=== PATIENT | male | born 1970 | race Caucasian/White ===

== ENCOUNTER 2017-04-09 23:50 | Emergency (ER) | payer OTHER ==
[~2017-04-09 23:50] MED LIST: ASPIRIN EC325 MG PO; CEFTRIAXONE IV; HYDROXYZINE PAM25 MG PO; OXYCODONE/ACETA1 TA1 PO
--- NOTE | 2017-04-10 01:55 | ED ORDER SUMMARY ---
..... Patient: CHINA FRASER OrderSheet [facility] VisitID: [id number] [address] [place] [address] 46y, M Registration Date/Time: 04/09/2017 ORDER SHEET Weight: 104.3 kg (stated) Allergies: No Known Drug Allergy GENERAL ORDERS: Chest 2V Urgent (00:59 04/10/2017 Quinn CHAKRABORTY) (Ack 1:01 [employer] ER Jeep Driver) (1:30 Chandrika) Rapid Influenza Screen (Nasal Pharyngeal) (swab) Urgent (00:59 04/10/2017 Quinn CHAKRABORTY) (Ack 1:01 [employer] ER Jeep Driver) (1:02 Rosalina R.N.) MEDICATION ORDERS: IV FLUIDS: ORDER SHEET NOTES: [Electronically signed by Berny Ayon R.N. (02:09 04/10/2017)] [Electronically signed by Carlos Manuel Branham MD (20:45 04/14/2017)] [Electronically locked/signed by Berny Ayon R.N. (02:09 04/10/2017)]
--- NOTE | 2017-04-10 01:55 | ED NURSING NOTES ---
Clinical Report - [facility] [place] [place] [address] 04/09/2017 23:51 Patient: CHINA FRASER TRIAGE Triage time 00:Apr 10 2017. Acuity: LEVEL 3. Chief Complaint: "FLU", FEVER, COUGH, SORE THROAT and BODY ACHES. Alert. No acute distress. --00:34 Kalia Ha R.N. 00:26 04/10/17. BP: 133/72. HR: 91. RR: 18. O2 saturation: 95% on room air. Temp: 97.6 F. Pain level now: 07/02. --00:34 Kalia Ha R.N. Weight: 104.3 kg stated. Height/Length: 73 inches Per Patient. BMI: 30.3. --00:26 Kalia Ha R.N. Medications Zicam Cold Remedy Oral. --00:30 Kalia Ha R.N. Airborne Oral. --00:30 Kalia Ha R.N. Allergies No Known Drug Allergy. --00:30 Kalia Ha R.N. History Arrived by private vehicle. Historian: patient and family. Accompanied by family. Onset. (1 week ago). He has had chills, fatigue, abdominal pain and diarrhea. 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 PAST MEDICAL HX: Pneumonia. No history of asthma or diabetes mellitus. Immunizations: up-to-date. SOCIAL HX: Heavy tobacco smoker. History of drug use: marijuana. No alcohol use. No recent travel. No infectious disease exposure. No known contact with a sick individual. ABUSE ASSESSMENT: Abuse assessment: The patient was asked "Do you feel safe in your home?". No report of abuse. SELF HARM ASSESSMENT: A self harm assessment was performed. The patient answered "no" to the question "Do you have thoughts of harming or killing yourself?" and "Have you recently had thoughts about harming or killing others?". FALL RISK ASSESSMENT: Fall risk assessment completed. No fall risk identified. NUTRITIONAL RISK ASSESSMENT: The nutritional risk assessment revealed no deficiencies. FUNCTIONAL ASSESSMENT: Functional assessment: no impairments noted. LEARNING NEEDS ASSESSMENT: The learning needs assessment revealed no barriers. SKIN INTEGRITY ASSESSMENT: Skin integrity risk assessment completed. No skin integrity risk identified. --00:34 Kalia Ha R.N. PROBLEMS: Dental Caries. Gastroenteritis. Weakness, sob . Contusion. Abscess. Dental Pain. Viral Disease. Wound Infection. Suture Removal. Wound Check. Laceration. Acute Pain. Epididymitis. --00:30 Kalia Ha R.N. ADDITIONAL SURGERIES: Finger surgery . Growth removed from testicle. Hernia Repair. Right arm ?. --00:30 Kalia Ha R.N. Interventions ID band on patient. To room. --00:34 Kalia Ha R.N. PHYSICAL ASSESSMENT Ambulatory to room. GENERAL / NEURO / PSYCH: Alert. Oriented X 4. Acute distress is noted. HEENT: Pupils equal, round and reactive to light. Mucous membranes are pink. RESPIRATORY: Respirations not labored. Decreased breath sounds. CVS: Pulses within normal limits. GI / : Abdomen soft and nontender. SKIN: Skin intact. Skin is warm and dry. --00:35 Kalia Ha R.N. NURSING PROGRESS NOTES The plan of care for this patient has been created. Patient gowned. Head of bed elevated. Reassurance given. Two patient identifiers checked. Call light placed in reach. Bed placed in lowest position. Patient ready for evaluation- chart flagged and ED physician notified. --00:35 Kalia Ha R.N. Patient ID band checked for patient name and birthdate: patient confirmed. Instructions provided to collect clean catch urine and patient verbalized understanding. Clean catch urine collected with return of ralf-colored cloudy urine; sample sent to lab. --00:40 Kalia Ha R.N. ( MD in to assess Pt.). --01:03 Kalia Ha R.N. Patient ID band checked for patient name and birthdate: patient confirmed. Flu swab obtained by RN via nasal swab. Labeled in the presence of the patient and sent to lab. --01:03 Kalia Ha R.N. 01:33 04/10/17. BP: 131/82. --01:33 Kalia Ha R.N. ( Pt has gone for CXR already, resting in bed, helped him reposition. S/O at bedside.). --01:34 Kalia Ha R.N. ( Report received from Kalia Ha RN). --01:35 Berny Ayon R.N. DISPOSITION / DISCHARGE Departure time: 02:07. Condition at departure: stable. No learning barriers present. Discharge instructions provided and reviewed with cigarette packer. Reviewed warnings. Reviewed medication(s) side effects, precautions, dosing and course information. Prescription(s) given to the patient. Treatments reviewed. Reviewed referrals for followup. Patient and cigarette packer verbalized understanding. Written instructions provided in [place] Citizen. The patient was discharged home and accompanied by cigarette packer. He left the Emergency Department ambulatory and via private vehicle. Repair Specialist driving. --02:08 Berny Ayon R.N. 02:07 04/10/17. BP: 131/82. HR: 99. RR: 24 (regular and unlabored). O2 saturation: 97% on room air. Tripathi-Castro pain scale: 2/10. --02:08 Berny Ayon R.N. Locked/Released at 04/10/2017 2:09 by Berny Ayon R.N.
--- NOTE | 2017-04-10 01:55 | ED CLINICAL REPORT ---
Clinical Report - Physicians/Mid Levels [facility] [address] [place] [address] 04/09/2017 23:51 [id number] Time Seen: 00:57 Apr 10 2017. Arrived- By private vehicle. Historian- patient. CPT: ER phys charges level 4 (#[id number]). HISTORY OF PRESENT ILLNESS Chief Complaint: COUGH, SORE THROAT, MUSCLE ACHES and "FLU". 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 The illness is described as moderate. The patient has had a cough, a sore throat, fever and muscle aches. He has had moderate amounts of thick, yellow, green sputum. There has been a change from baseline. No difficulty breathing, chest discomfort or pain or nasal congestion. Additional history - No known contact with a sick individual. Similar symptoms previously: Recent medical care: Not recently seen/assessed. REVIEW OF SYSTEMS No nausea, vomiting, diarrhea, abdominal pain or pedal edema. No calf pain, difficulty with urination, skin rash, enlarged lymph nodes or joint pain. All systems otherwise negative, except as recorded above. PAST HISTORY Pneumonia. Dental Caries. Gastroenteritis. Weakness, sob . Contusion. Abscess. Dental Pain. Viral Disease. Wound Infection. Suture Removal. Wound Check. Laceration. Acute Pain. Epididymitis. --00:30 Kalia Ha R.N. ADDITIONAL SURGERIES: Finger surgery . Growth removed from testicle. Hernia Repair. Right arm ?. Medications: Airborne Oral. Zicam Cold Remedy Oral. Allergies: No Known Drug Allergy. SOCIAL HISTORY Heavy tobacco smoker (cigarette)- less than 1 pack per day. Occasional alcohol use. No drug use. ADDITIONAL NOTES The nursing notes have been reviewed. PHYSICAL EXAM Vital Signs: 04/10/2017 00:26 BP: 133/72. HR: 91. RR: 18. O2 saturation: 95%. Temp: 97.6 F. Pain level now: 8/10. Appearance: Alert. No acute distress. Eyes: Eyes normal inspection. ENT: Nose normal. Pharynx normal. Uvula midline. Neck: Normal inspection. CVS: Normal heart rate and rhythm. Heart sounds normal. Pulses normal. Respiratory: No respiratory distress. Mild bilateral wheezes in the bases. Moderate rales in the right lung base posteriorly and mid-lung posteriorly. Abdomen: Soft. Skin: Normal skin color. No rash. Neuro: Oriented X 3. LABS, X-RAYS, AND EKG Chest X-ray: Normal Chest X-Ray. Laboratory Tests: Rapid Influenza Screen: (EMELYN: 04/10/2017 00:37) ( MsgRcvd 04/10/2017 01:17) Final results SPECIMEN DESCRIPTION: SWAB Test Result Flag Units (Reference) RAPID INFLUENZA SCREEN CALLED TO: N/A -- DATE: 04/10/17 INFLUENZA A: NEGATIVE SCREEN FOR INFLUENZA A INFLUENZA B: NEGATIVE SCREEN FOR INFLUENZA B . PROGRESS AND PROCEDURES Patient/family counseled. Disposition: Discharged. Condition: stable. CLINICAL IMPRESSION Acute bacterial mucopurulent bronchitis associated with bronchospasm. Bronchitis vs early pneumonia. INSTRUCTIONS No strenuous activity. Rest. Drink plenty of fluids. Warnings: Further evaluation is necessary. GENERAL WARNINGS: Return or contact your physician immediately if your condition worsens or changes unexpectedly, if not improving as expected, or if other problems arise. Your Current Medications: CONTINUE TAKING THE FOLLOWING MEDICATIONS: Airborne Oral. Zicam Cold Remedy Oral. Prescription Medications: Albuterol HFA oral inhaler: inhale 2 puffs via spacer every 4 hours as needed for difficulty breathing or shortness of breath, until symptoms improve. Dispense one (1) unit. No refill. Zithromax 250 mg tablets: take 2 orally today, followed by 1 daily for the next 4 days. No refills. Substitution is permissible. Hydrocodone / APAP Liquid 7.5mg/325mg/15 mL: take fifteen (15) mL orally every 4 hours as needed for pain. Dispense two hundred (200) mL. No refill. (or cough) Follow-up: Follow up with your doctor in one week. Call for an appointment. Understanding of the discharge instructions verbalized by patient and family. (Electronically signed by Carlos Manuel Branham MD 04/14/2017 20:45)
--- NOTE | 2017-04-10 01:55 | ED ORDER SUMMARY ---
..... 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 (02:09 04/10/2017)] [Electronically signed by Carlos Manuel Branham MD (20:45 04/14/2017)] [Electronically locked/signed by Berny Ayon R.N. (02:09 04/10/2017)]
--- NOTE | 2017-04-10 01:55 | ED CLINICAL REPORT ---
Clinical Report - Physicians/Mid Levels [facility] [address] [place] [address] 04/09/2017 23:51 [id number] Time Seen: 00:57 Apr 10 2017. Arrived- By private vehicle. Historian- patient. CPT: ER phys charges level 4 (#[id number]). HISTORY OF PRESENT ILLNESS Chief Complaint: COUGH, SORE THROAT, MUSCLE ACHES and "FLU". 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 The illness is described as moderate. The patient has had a cough, a sore throat, fever and muscle aches. He has had moderate amounts of thick, yellow, green sputum. There has been a change from baseline. No difficulty breathing, chest discomfort or pain or nasal congestion. Additional history - No known contact with a sick individual. Similar symptoms previously: Recent medical care: Not recently seen/assessed. REVIEW OF SYSTEMS No nausea, vomiting, diarrhea, abdominal pain or pedal edema. No calf pain, difficulty with urination, skin rash, enlarged lymph nodes or joint pain. All systems otherwise negative, except as recorded above. PAST HISTORY Pneumonia. Dental Caries. Gastroenteritis. Weakness, sob . Contusion. Abscess. Dental Pain. Viral Disease. Wound Infection. Suture Removal. Wound Check. Laceration. Acute Pain. Epididymitis. --00:30 Kalia Ha R.N. ADDITIONAL SURGERIES: Finger surgery . Growth removed from testicle. Hernia Repair. Right arm ?. Medications: Airborne Oral. Zicam Cold Remedy Oral. Allergies: No Known Drug Allergy. SOCIAL HISTORY Heavy tobacco smoker (cigarette)- less than 1 pack per day. Occasional alcohol use. No drug use. ADDITIONAL NOTES The nursing notes have been reviewed. PHYSICAL EXAM Vital Signs: 04/10/2017 00:26 BP: 133/72. HR: 91. RR: 18. O2 saturation: 95%. Temp: 97.6 F. Pain level now: 8/10. Appearance: Alert. No acute distress. Eyes: Eyes normal inspection. ENT: Nose normal. Pharynx normal. Uvula midline. Neck: Normal inspection. CVS: Normal heart rate and rhythm. Heart sounds normal. Pulses normal. Respiratory: No respiratory distress. Mild bilateral wheezes in the bases. Moderate rales in the right lung base posteriorly and mid-lung posteriorly. Abdomen: Soft. Skin: Normal skin color. No rash. Neuro: Oriented X 3. LABS, X-RAYS, AND EKG Chest X-ray: Normal Chest X-Ray. Laboratory Tests: Rapid Influenza Screen: (EMELYN: 04/10/2017 00:37) ( MsgRcvd 04/10/2017 01:17) Final results SPECIMEN DESCRIPTION: SWAB Test Result Flag Units (Reference) RAPID INFLUENZA SCREEN CALLED TO: N/A -- DATE: 04/10/17 INFLUENZA A: NEGATIVE SCREEN FOR INFLUENZA A INFLUENZA B: NEGATIVE SCREEN FOR INFLUENZA B . PROGRESS AND PROCEDURES Patient/family counseled. Disposition: Discharged. Condition: stable. CLINICAL IMPRESSION Acute bacterial mucopurulent bronchitis associated with bronchospasm. Bronchitis vs early pneumonia. INSTRUCTIONS No strenuous activity. Rest. Drink plenty of fluids. Warnings: Further evaluation is necessary. GENERAL WARNINGS: Return or contact your physician immediately if your condition worsens or changes unexpectedly, if not improving as expected, or if other problems arise. Your Current Medications: CONTINUE TAKING THE FOLLOWING MEDICATIONS: Airborne Oral. Zicam Cold Remedy Oral. Prescription Medications: Albuterol HFA oral inhaler: inhale 2 puffs via spacer every 4 hours as needed for difficulty breathing or shortness of breath, until symptoms improve. Dispense one (1) unit. No refill. Zithromax 250 mg tablets: take 2 orally today, followed by 1 daily for the next 4 days. No refills. Substitution is permissible. Hydrocodone / APAP Liquid 7.5mg/325mg/15 mL: take fifteen (15) mL orally every 4 hours as needed for pain. Dispense two hundred (200) mL. No refill. (or cough) Follow-up: Follow up with your doctor in one week. Call for an appointment. Understanding of the discharge instructions verbalized by patient and family. (Electronically signed by Carlos Manuel Branham MD 04/14/2017 20:45)
--- NOTE | 2017-04-10 01:55 | ED NURSING NOTES ---
Clinical Report - Nurses [facility] [place] [address] 04/09/2017 23:51 Patient: CHINA FRASER TRIAGE Triage time 00:Apr 10 2017. Acuity: LEVEL 3. Chief Complaint: "FLU", FEVER, COUGH, SORE THROAT and BODY ACHES. Alert. No acute distress. --00:34 Kalia Ha R.N. 00:26 04/10/17. BP: 133/72. HR: 91. RR: 18. O2 saturation: 95% on room air. Temp: 97.6 F. Pain level now: 07/02. --00:34 Kalia Ha R.N. Weight: 104.3 kg stated. Height/Length: 73 inches Per Patient. BMI: 30.3. --00:26 Kalia Ha R.N. Medications Zicam Cold Remedy Oral. --00:30 Kalia Ha R.N. Airborne Oral. --00:30 Kalia Ha R.N. Allergies No Known Drug Allergy. --00:30 Kalia Ha R.N. History Arrived by private vehicle. Historian: patient and family. Accompanied by family. Onset. (1 week ago). He has had chills, fatigue, abdominal pain and diarrhea. 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 PAST MEDICAL HX: Pneumonia. No history of asthma or diabetes mellitus. Immunizations: up-to-date. SOCIAL HX: Heavy tobacco smoker. History of drug use: marijuana. No alcohol use. No recent travel. No infectious disease exposure. No known contact with a sick individual. ABUSE ASSESSMENT: Abuse assessment: The patient was asked "Do you feel safe in your home?". No report of abuse. SELF HARM ASSESSMENT: A self harm assessment was performed. The patient answered "no" to the question "Do you have thoughts of harming or killing yourself?" and "Have you recently had thoughts about harming or killing others?". FALL RISK ASSESSMENT: Fall risk assessment completed. No fall risk identified. NUTRITIONAL RISK ASSESSMENT: The nutritional risk assessment revealed no deficiencies. FUNCTIONAL ASSESSMENT: Functional assessment: no impairments noted. LEARNING NEEDS ASSESSMENT: The learning needs assessment revealed no barriers. SKIN INTEGRITY ASSESSMENT: Skin integrity risk assessment completed. No skin integrity risk identified. --00:34 Kalia Ha R.N. PROBLEMS: Dental Caries. Gastroenteritis. Weakness, sob . Contusion. Abscess. Dental Pain. Viral Disease. Wound Infection. Suture Removal. Wound Check. Laceration. Acute Pain. Epididymitis. --00:30 Kalia Ha R.N. ADDITIONAL SURGERIES: Finger surgery . Growth removed from testicle. Hernia Repair. Right arm ?. --00:30 Kalia Ha R.N. Interventions ID band on patient. To room. --00:34 Kalia Ha R.N. PHYSICAL ASSESSMENT Ambulatory to room. GENERAL / NEURO / PSYCH: Alert. Oriented X 4. Acute distress is noted. HEENT: Pupils equal, round and reactive to light. Mucous membranes are pink. RESPIRATORY: Respirations not labored. Decreased breath sounds. CVS: Pulses within normal limits. GI / : Abdomen soft and nontender. SKIN: Skin intact. Skin is warm and dry. --00:35 Kalia Ha R.N. NURSING PROGRESS NOTES The plan of care for this patient has been created. Patient gowned. Head of bed elevated. Reassurance given. Two patient identifiers checked. Call light placed in reach. Bed placed in lowest position. Patient ready for evaluation- chart flagged and ED physician notified. --00:35 Kalia Ha R.N. Patient ID band checked for patient name and birthdate: patient confirmed. Instructions provided to collect clean catch urine and patient verbalized understanding. Clean catch urine collected with return of ralf-colored cloudy urine; sample sent to lab. --00:40 Kalia Ha R.N. ( MD in to assess Pt.). --01:03 Kalia Ha R.N. Patient ID band checked for patient name and birthdate: patient confirmed. Flu swab obtained by RN via nasal swab. Labeled in the presence of the patient and sent to lab. --01:03 Kalia Ha R.N. 01:33 04/10/17. BP: 131/82. --01:33 Kalia Ha R.N. ( Pt has gone for CXR already, resting in bed, helped him reposition. S/O at bedside.). --01:34 Kalia Ha R.N. ( Report received from Kalia Ha RN). --01:35 Berny Ayon R.N. DISPOSITION / DISCHARGE Departure time: 02:07. Condition at departure: stable. No learning barriers present. Discharge instructions provided and reviewed with classer. Reviewed warnings. Reviewed medication(s) side effects, precautions, dosing and course information. Prescription(s) given to the patient. Treatments reviewed. Reviewed referrals for followup. Patient and classer verbalized understanding. Written instructions provided in [place]. The patient was discharged home and accompanied by classer. He left the Emergency Department ambulatory and via private vehicle. Manager Intensive Care driving. --02:08 Berny Ayon R.N. 02:07 04/10/17. BP: 131/82. HR: 99. RR: 24 (regular and unlabored). O2 saturation: 97% on room air. Tripathi-Castro pain scale: 2/10. --02:08 Berny Ayon R.N. Locked/Released at 04/10/2017 2:09 by Berny Ayon R.N.
--- NOTE | 2017-04-10 02:27 | DIAGNOSTIC IMAGING REPORT ---
PROCEDURE: XR CHEST 2 VIEW INDICATION: FEVER TECHNIQUE: PA and lateral views. COMPARISON: Compared to chest x-ray on 08/28/2015. FINDINGS: Lungs are clear. Heart and mediastinum are normal. Mild degenerative changes of the thoracic spine. IMPRESSION: 1. Negative chest.
--- NOTE | 2017-04-14 20:45 | ED MAR SUMMARY ---
..... Medication Administration Record [facility] [address], [place] [id number] Patient: CHINA FRASER Visit ID: [id number] 46y, M Weight: 104.3 kg Height/Length: 73 in BMI: 30.3 ALLERGIES: No Known Drug Allergy
--- NOTE | 2017-04-14 20:45 | ED MAR SUMMARY ---
..... Medication Administration Record [facility] [address] [place], [place] [id number] Patient: CHINA FRASER Visit ID: [id number] 46y, M Weight: 104.3 kg Height/Length: 73 in BMI: 30.3 ALLERGIES: No Known Drug Allergy
--- NOTE | 2017-04-14 20:45 | ED DISCHARGE INSTRUCTIONS ---
Patient: [place] FRASER General Instructions [facility] VisitID: [id number] [address] [place] [address] 46y, M Registration Date/Time: 04/09/2017 Bronchitis vs early pneumonia. INSTRUCTIONS No strenuous activity. Rest. Drink plenty of fluids. Warnings: Further evaluation is necessary. GENERAL WARNINGS: Return or contact your physician immediately if your condition worsens or changes unexpectedly, if not improving as expected, or if other problems arise. Your Current Medications: CONTINUE TAKING THE FOLLOWING MEDICATIONS: Airborne Oral. Zicam Cold Remedy Oral. Prescription Medications: Albuterol HFA oral inhaler: inhale 2 puffs via spacer every 4 hours as needed for difficulty breathing or shortness of breath, until symptoms improve. Dispense one (1) unit. No refill. Zithromax 250 mg tablets: take 2 orally today, followed by 1 daily for the next 4 days. No refills. Substitution is permissible. Hydrocodone / APAP Liquid 7.5mg/325mg/15 mL: take fifteen (15) mL orally every 4 hours as needed for pain. Dispense two hundred (200) mL. No refill. (or cough) Follow-up: Follow up with your doctor in one week. Call for an appointment. Understanding of the discharge instructions verbalized by patient and family. ADDITIONAL INFORMATION Bronchitis With Wheezing (Viral Or Bacterial: Adult) Bronchitis is an infection of the air passages. It often occurs during the common cold and is usually caused by a virus. Symptoms include cough with mucus (phlegm) and low-grade fever. If there is a lot of inflammation, air flow is restricted. The air passages may also go into spasm, especially if you are an asthmatic. This causes wheezing and difficulty breathing even in persons who do not have asthma. Bronchitis usually lasts 7-14 days. The wheezing should improve with treatment during the first week. An inhaler is often prescribed to relax the air passages and stop wheezing. Antibiotics will be prescribed if your doctor thinks there is also a secondary bacterial infection. Home Care: If symptoms are severe, rest at home for the first 2-3 days. When resuming activity, don't let yourself become overly tired. Do not smoke and avoid exposure to the smoke of others. You may use acetaminophen (Tylenol) or ibuprofen (Motrin, Advil) to control fever, unless another medicine was prescribed. [NOTE: If you have chronic liver or kidney disease or ever had a stomach ulcer or GI bleeding, talk with your doctor before using these medicines.] (Aspirin should never be used in anyone under 18 years of age who is ill with a fever. It may cause severe liver damage.) Your appetite may be poor so a light diet is fine. Avoid dehydration by drinking 6-8 glasses of fluids per day (water, soft, drinks, juices, tea, soup, etc.). Extra fluids will help loosen secretions in the lungs. [id number] cough medicines that containdextromethorphan(such as Robitussin DM) and decongestants (Actifed or Sudafed) may help relieve cough and congestion. [NOTE: Do not use decongestants if you have high blood pressure.] If you were given an inhaler, use it exactly as directed. If you need to use it more often than prescribed, your condition may be worsening. Contact your doctor or this facility. If prescribed, finish all antibiotic medicine, even if you are feeling better after only a few days. Follow Up With Your Doctor Or As Directed If You Are Not Starting To Feel Better After Three Days. [NOTE: If you are age 65 or older, or if you have chronic asthma or COPD, we recommend a pneumococcal vaccination every five years and a yearly influenza vaccination (flu shot) every . Ask your doctor about this. If you had an x-ray or EKG (electrocardiogram), it will be reviewed by a specialist. You will be notified of any new findings that may affect your care.] Get Prompt Medical Attention If Any Of The Following Occur: Increased wheezing, shortness of breath or pain with breathing Fever of 100.4F (38C) oral or higher, not better with fever medication Coughing up blood or increasing amounts of colored sputum Weakness, drowsiness, headache, facial pain, ear pain or a stiff neck Lower leg swelling, tenderness, redness or pain Albuterol Sulfate Pressurized inhalation, suspension What is this medicine? ALBUTEROL (al BYOO ter ole) is a bronchodilator. It helps open up the airways in your lungs to make it easier to breathe. This medicine is used to treat and to prevent bronchospasm. How should I use this medicine? This medicine is for inhalation through the mouth. Follow the directions on your prescription label. Take your medicine at regular intervals. Do not use more often than directed. Make sure that you are using your inhaler correctly. Ask you doctor or health care provider if you have any questions. Talk to your chief engineer regarding the use of this medicine in children. Special care may be needed. What side effects may I notice from receiving this medicine? Side effects that you should report to your doctor or health managed care specialist as soon as possible: allergic reactions like skin rash, itching or hives, swelling of the face, lips, or tongue breathing problems chest pain feeling faint or lightheaded, falls high blood pressure irregular heartbeat fever muscle cramps or weakness pain, tingling, numbness in the hands or feet vomiting Side effects that usually do not require medical attention (report to your doctor or health managed care specialist if they continue or are bothersome): cough difficulty sleeping headache nervousness or trembling stomach upset stuffy or runny nose throat irritation unusual taste What may interact with this medicine? anti-infectives like chloroquine and pentamidine caffeine cisapride diuretics medicines for colds medicines for depression or for emotional or psychotic conditions medicines for weight loss including some herbal products methadone some antibiotics like clarithromycin, erythromycin, levofloxacin, and linezolid some heart medicines steroid hormones like dexamethasone, cortisone, hydrocortisone theophylline thyroid hormones What if I miss a dose? If you miss a dose, use it as soon as you can. If it is almost time for your next dose, use only that dose. Do not use double or extra doses. Where should I keep my medicine? Keep out of the reach of children. Store at room temperature between 15 and 30 degrees C (59 and 86 degrees F). The contents are under pressure and may burst when exposed to heat or flame. Do not freeze. This medicine does not work as well if it is too cold. Throw away any unused medicine after the expiration date. Inhalers need to be thrown away after the labeled number of puffs have been used or by the expiration date; whichever comes first. Ventolin HFA should be thrown away 12 months after removing from foil pouch. Check the instructions that come with your medicine. What should I tell my health care provider before I take this medicine? They need to know if you have any of the following conditions: diabetes heart disease or irregular heartbeat high blood pressure pheochromocytoma seizures thyroid disease an unusual or allergic reaction to albuterol, levalbuterol, sulfites, other medicines, foods, dyes, or preservatives or trying to get breast-feeding What should I watch for while using this medicine? Tell your doctor or health managed care specialist if your symptoms do not improve. Do not use extra albuterol. If your asthma or bronchitis gets worse while you are using this medicine, call your doctor right away. If your mouth gets dry try chewing sugarless gum or sucking hard candy. Drink water as directed. Hydrocodone Bitartrate, Acetaminophen Oral solution What is this medicine? ACETAMINOPHEN; HYDROCODONE (a set a ALYSON rock fen; bravo droe KOE done) is a pain reliever. It is used to treat mild to moderate pain. How should I use this medicine? Take this medicine by mouth. Use a specially marked spoon or dropper to measure your dose. Ask your pharmacist if you do not have a dropper or measuring spoon. Do not use a household spoon. Follow the directions on the prescription label. If the medicine upsets your stomach, take it with food or milk. Do not take more medicine than you are told to take. Talk to your chief engineer regarding the use of this medicine in children. This medicine is not approved for use in children. What side effects may I notice from receiving this medicine? Side effects that you should report to your doctor or health managed care specialist as soon as possible: allergic reactions like skin rash, itching or hives, swelling of the face, lips, or tongue breathing problems confusion feeling faint or lightheaded, falls stomach pain yellowing of the eyes or skin Side effects that usually do not require medical attention (report to your doctor or health managed care specialist if they continue or are bothersome): nausea, vomiting stomach upset What may interact with this medicine? alcohol antihistamines isoniazid medicines for depression, anxiety, or psychotic disturbances medicines for sleep muscle relaxants naltrexone narcotic medicines (opiates) for pain phenobarbital ritonavir tramadol What if I miss a dose? If you miss a dose, take it as soon as you can. If it is almost time for your next dose, take only that dose. Do not take double or extra doses. Where should I keep my medicine? Keep out of the reach of children. This medicine can be abused. Keep your medicine in a safe place to protect it from theft. Do not share this medicine with anyone. Selling or giving away this medicine is dangerous and against the law. Store at room temperature between 20 and 25 degrees C (68 and 77 degrees F). Protect from light. Keep container tightly closed. Throw away any unused medicine after the expiration date. Discard unused medicine and used packaging carefully. Pets and children can be harmed if they find used or lost packages. What should I tell my health care provider before I take this medicine? They need to know if you have any of these conditions: brain tumor Crohn's disease, inflammatory bowel disease, or ulcerative colitis drink more than 3 alcohol-containing drinks per day drug abuse or addiction head injury heart or circulation problems kidney disease or problems going to the bathroom liver disease lung disease, asthma, or breathing problems an unusual or allergic reaction to acetaminophen, hydrocodone, other opioid analgesics, other medicines, foods, dyes, or preservatives or trying to get breast-feeding What should I watch for while using this medicine? Tell your doctor or health managed care specialist if your pain does not go away, if it gets worse, or if you have new or a different type of pain. You may develop tolerance to the medicine. Tolerance means that you will need a higher dose of the medicine for pain relief. Tolerance is normal and is expected if you take this medicine for a long time. Do not suddenly stop taking your medicine because you may develop a severe reaction. Your body becomes used to the medicine. This does NOT mean you are addicted. Addiction is a behavior related to getting and using a drug for a non-medical reason. If you have pain, you have a medical reason to take pain medicine. Your doctor will tell you how much medicine to take. If your doctor wants you to stop the medicine, the dose will be slowly lowered over time to avoid any side effects. You may get drowsy or dizzy when you first start taking the medicine or change doses. Do not drive, use machinery, or do anything that may be dangerous until you know how the medicine affects you. Stand or sit up slowly. There are different types of narcotic medicines (opiates) for pain. If you take more than one type at the same time, you may have more side effects. Give your health care provider a list of all medicines you use. Your doctor will tell you how much medicine to take. Do not take more medicine than directed. Call emergency for help if you have problems breathing. The medicine will cause constipation. Try to have a bowel movement at least every 2 to 3 days. If you do not have a bowel movement for 3 days, call your doctor or health managed care specialist. Too much acetaminophen can be very dangerous. Do not take Tylenol (acetaminophen) or medicines that contain acetaminophen with this medicine. Many non-prescription medicines contain acetaminophen. Always read the labels carefully. You have been given the following additional information: Bronchitis With Wheezing (Adult) Albuterol Sulfate Pressurized inhalation, suspension Hydrocodone Bitartrate, Acetaminophen Oral solution No strenuous activity. Rest. (Electronically signed by Carlos Manuel Branham MD 04/14/2017 20:45)
--- NOTE | 2017-04-14 20:45 | ED MED RECONCILIATION SUMMARY ---
Patient: [place] FRASER Medication Reconciliation Report [facility] VisitID: [id number] [address] [place] [address] 46y, M Registration Date/Time: 04/09/2017 Weight: 104.3 kg Height/Length: 73 in. BMI: 30.3 ALLERGIES: No Known Drug Allergy The patient's Home Medications are listed below: CONTINUE TAKING THE FOLLOWING MEDICATIONS: Airborne Oral Zicam Cold Remedy Oral The source(s) of the original Home Medication information: Not obtained. The following Medications were given to the patient in the Emergency Department: None. The following Medications were prescribed to the patient: Albuterol HFA oral inhaler: inhale 2 puffs via spacer every 4 hours as needed for difficulty breathing or shortness of breath, until symptoms improve. Dispense one (1) unit. No refill. -- Carlos Manuel Branham MD Zithromax 250 mg tablets: take 2 orally today, followed by 1 daily for the next 4 days. No refills. Substitution is permissible. -- Carlos Manuel Branham MD Hydrocodone / APAP Liquid 7.5mg/325mg/15 mL: take fifteen (15) mL orally every 4 hours as needed for pain. Dispense two hundred (200) mL. No refill.(or cough) -- Carlos Manuel Branham MD
--- NOTE | 2017-04-14 20:45 | ED MED RECONCILIATION SUMMARY ---
Patient: [place] FRASER Medication Reconciliation Report [facility] VisitID: [id number] [address] [place] [address] 46y, M Registration Date/Time: 04/09/2017 Weight: 104.3 kg Height/Length: 73 in. BMI: 30.3 ALLERGIES: No Known Drug Allergy The patient's Home Medications are listed below: CONTINUE TAKING THE FOLLOWING MEDICATIONS: Airborne Oral Zicam Cold Remedy Oral The source(s) of the original Home Medication information: Not obtained. The following Medications were given to the patient in the Emergency Department: None. The following Medications were prescribed to the patient: Albuterol HFA oral inhaler: inhale 2 puffs via spacer every 4 hours as needed for difficulty breathing or shortness of breath, until symptoms improve. Dispense one (1) unit. No refill. -- Carlos Manuel Branham MD Zithromax 250 mg tablets: take 2 orally today, followed by 1 daily for the next 4 days. No refills. Substitution is permissible. -- Carlos Manuel Branham MD Hydrocodone / APAP Liquid 7.5mg/325mg/15 mL: take fifteen (15) mL orally every 4 hours as needed for pain. Dispense two hundred (200) mL. No refill.(or cough) -- Carlos Manuel Branham MD
== END 2017-04-10 02:05 | disposition home or self-care (01) ==
LOC: ED SRH 23:50
DX: J20.9 Acute bronchitis, unspecified (principal); J98.01 Acute bronchospasm
CPT/HCPCS: 91400